=== PATIENT | female | born 1965 | race Caucasian/White ===

== ENCOUNTER 2017-05-20 15:14 | Emergency (ER) | payer OTHER ==
[~2017-05-20] VITALS: Ht 172.7 cm; Wt 97.5 kg
[~2017-05-20 15:14] MED LIST: AMIT1TAB79; ASPI81TA81 PO; BACL10TA PO; BUSP10TA PO; COQ-30CA2; FLUC150T PO; GABA400C5 PO; GEMF600T PO; LAMO100 PO; LURA40 PO; NOVONP2 SQ; NRDRIP; NYST15T TOPICAL; TRIA.1%T TOPICAL; VENL75CA44 PO; VENL75TA PO; VIST25CA PO
[2017-05-20 15:17] VITALS: BP 189/90; PULSE 92; RESP 20; TEMP 96.7; O2SAT 99
--- NOTE | 2017-05-20 15:30 | PD ---
Physical Exam Date Seen by Provider: May 20, 2017 Time Seen by Provider: 15:27 Narrative 52 yo female here for possible allergic reaction. Had increase on med including lithium and seroquel. Feeling clumsy and having slurred speech since change in med. Vitals are stable in triage. Awaiting Bed placement. Data Data Last Documented VS Vital Signs Date Time Temp Pulse Resp B/P (MAP) Pulse Ox O2 Delivery O2 Flow Rate FiO2 05/20/17 15:17 96.7 92 20 189/90 (123) 99 Room Air [facility] Medical Record Reviewed: Yes Supervised Visit with YAHIR: Vega Gandhi May 20, 2017 15:30
[2017-05-20] MEDS ORDERED: TIZA4TAB PO (17:11)
[2017-05-20] MEDS ORDERED: LITH300C2 PO (17:11)
[2017-05-20] MEDS ORDERED: PRAV20TA2 PO (17:11)
[2017-05-20] MEDS ORDERED: SERO200T PO (17:11)
[2017-05-20 17:28] LABS: AUTOMATED NEUTROPHIL # 3.5 TH/MM3 (1.8-7.7); BASOPHIL % 0.6 % (0.0-2.0); EOSINOPHIL % 0.4 % (0.0-4.0); HEMATOCRIT 41.3 % (35.0-46.0); HEMO FLAGS DIFF FINAL; LYMPH % 23.8 % (9.0-44.0); LYMPHOCYTE # 1.2 TH/MM3 (1.0-4.8); MEAN CELL VOLUME 83.2 FL (80.0-100.0); MEAN CORPUSCULAR HEMOGLOBIN 27.3 PG (27.0-34.0); MEAN CORPUSCULAR HGB CONC 32.8 % (32.0-36.0); MONO % 7.6 % (0.0-8.0); NEUT % 67.6 % (16.0-70.0); PLATELET COUNT 225 TH/MM3 (150-450); RED BLOOD COUNT 4.96 MIL/MM3 (4.00-5.30); RED CELL DISTRIBUTION WIDTH 13.7 % (11.6-17.2); WHITE BLOOD COUNT 5.2 TH/MM3 (4.0-11.0)
[2017-05-20 17:56] LABS: ANION GAP 8 MEQ/L (5-15); AST (GOT) 58 U/L (15-37); BICARBONATE 26.8 MEQ/L (21.0-32.0); BLOOD UREA NITROGEN 17 MG/DL (7-18); CHLORIDE 105 MEQ/L (98-107); GLOMERULAR FILTRATION RATE 55 ML/MIN (>89); POTASSIUM 3.7 MEQ/L (3.5-5.1); SODIUM (NA) 140 MEQ/L (136-145)
[2017-05-20 17:57] LABS: ALT (GPT) 81 U/L (10-53)
--- NOTE | 2017-05-20 17:57 | PD ---
HPI Chief Complaint: Allergic/Adverse Reaction Time Seen by Provider: 17:44 Travel History International Travel<30 days: No Contact w/Intl Traveler<30days: No Traveled to known affect area: No History of Present Illness HPI 52yo F with PMH of bipolar disorder presents to the ED with c/o possible reaction to her increased of lithium. States that her lithium dose was increased from 150mg to 300mg starting last night and after she took it, she felt funny. She like her "brain freeze" and she couldnt breath but it was only at night. Denies any fever, visual changes, chest pain, sob, n/v, abdominal pain. Pt has also been taking seroquel for 2 months. PFSH Past Medical History Asthma: No Blood Disorders: No Bipolar Disorder: Yes Anxiety: Yes Depression: Yes Heart Rhythm Problems: No Cancer: No Cardiovascular Problems: Yes High Cholesterol: Yes Chemotherapy: No Chest Pain: Yes Congestive Heart Failure: No COPD: No Diabetes: Yes Patient Takes Glucophage: No Diminished Hearing: No Endocrine: Yes Gastrointestinal Disorders: Yes Genitourinary: No Hypertension: Yes Immune Disorder: No Musculoskeletal: No Neurologic: No Psychiatric: Yes (Bi-Polar and Depression) Reproductive: No Respiratory: No Immunizations Current: No Radiation Therapy: No Sleep Apnea: No Thyroid Disease: No ?: Not LMP: na Menopausal: Yes Past Surgical History Tonsillectomy: Yes Other Surgery: Yes (tonsils and adnoids) Social History Alcohol Use: No Tobacco Use: No Substance Use: No Allergies-Medications (Allergen,Severity, Reaction): Coded Allergies: No Known Allergies (Verified , 05/20/17) Reported Meds & Prescriptions Reported Meds & Active Scripts Active Fluconazole 150 Mg Tab 150 Mg PO WEEKLY Nystatin Topical (Nystatin) 100,000 unit/gm Cream 1 Applic TOPICAL BID Reported Tizanidine (Tizanidine HCl) 4 Mg Tab 4 Mg PO DAILY Pravastatin 20 Mg Tab 20 Mg PO DAILY Seroquel (Quetiapine Fumarate) 200 Mg Tab 400 Mg PO HS [place] Carbonate 300 Mg Cap 300 Mg PO BID Novolin N Inj (Insulin Human NPH) 100 Unit/Ml Inj 55 Unit SQ BID Gemfibrozil 600 Mg Tab 600 Mg PO BIDAC Take 30 minutes prior to breakfast and dinner. Baclofen 10 Mg Tab 10 Mg PO BID Aspir-81 (Aspirin) 81 Mg Tabdr 81 Mg PO DAILY Review of Systems Except as stated in HPI: all other systems reviewed are Neg Physical Exam Narrative GENERAL: 52yo F not in distress. SKIN: Focused skin assessment warm/dry. HEAD: Atraumatic. Normocephalic. EYES: Pupils equal and round at 3mm bilaterally and equal. EOMI. No scleral icterus. No injection or drainage. ENT: No nasal bleeding or discharge. Mucous membranes pink and moist. NECK: Trachea midline. No JVD. CARDIOVASCULAR: Regular rate and rhythm. No murmur appreciated. RESPIRATORY: No accessory muscle use. Clear to auscultation. Breath sounds equal bilaterally. GASTROINTESTINAL: Abdomen soft, non-tender, nondistended. MUSCULOSKELETAL: No obvious deformities. No clubbing. No cyanosis. No edema. NEUROLOGICAL: Awake and alert. No obvious cranial nerve deficits. Motor grossly within normal limits in all extremities. Normal speech. Sensation intact bilaterally. PSYCHIATRIC: Appropriate mood and affect; insight and judgment normal. Data Data Last Documented VS Vital Signs Date Time Temp Pulse Resp B/P (MAP) Pulse Ox O2 Delivery O2 Flow Rate FiO2 05/20/17 19:16 05/20/17 15:17 96.7 92 20 99 Room Air Orders Orders Complete Blood Count With Diff (05/20/17 15:25) Comprehensive Metabolic Panel (05/20/17 15:25) Urinalysis - C+S If Indicated (05/20/17 15:25) [place] (Li) (05/20/17 15:25) Drug Screen, Random Urine (05/20/17 15:25) Alcohol (Ethanol) (05/20/17 15:25) Salicylates (Aspirin) (05/20/17 15:25) Tylenol (Acetaminophen) (05/20/17 15:25) Urine Culture (05/20/17 18:24) Labs Laboratory Tests Test 05/20/17 17:05 05/20/17 18:24 White Blood Count 5.2 TH/MM3 Red Blood Count 4.96 MIL/MM3 Hemoglobin 13.6 GM/DL Hematocrit 41.3 % Mean Corpuscular Volume 83.2 FL Mean Corpuscular Hemoglobin 27.3 PG Mean Corpuscular Hemoglobin Concent 32.8 % Red Cell Distribution Width 13.7 % Platelet Count 225 TH/MM3 Mean Platelet Volume 8.4 FL Neutrophils (%) (Auto) 67.6 % Lymphocytes (%) (Auto) 23.8 % Monocytes (%) (Auto) 7.6 % Eosinophils (%) (Auto) 0.4 % Basophils (%) (Auto) 0.6 % Neutrophils # (Auto) 3.5 TH/MM3 Lymphocytes # (Auto) 1.2 TH/MM3 Monocytes # (Auto) 0.4 TH/MM3 Eosinophils # (Auto) 0.0 TH/MM3 Basophils # (Auto) 0.0 TH/MM3 CBC Comment DIFF FINAL Differential Comment Blood Urea Nitrogen 17 MG/DL Creatinine 1.05 MG/DL Random Glucose 217 MG/DL Total Protein 7.2 GM/DL Albumin 4.0 GM/DL Calcium Level 10.0 MG/DL Alkaline Phosphatase 103 U/L Aspartate Amino Transf (AST/SGOT) 58 U/L Alanine Aminotransferase (ALT/SGPT) 81 U/L Total Bilirubin 0.8 MG/DL Sodium Level 140 MEQ/L Potassium Level 3.7 MEQ/L Chloride Level 105 MEQ/L Carbon Dioxide Level 26.8 MEQ/L Anion Gap 8 MEQ/L Estimat Glomerular Filtration Rate 55 ML/MIN Salicylates Level LESS THAN 1.7 MG/DL Acetaminophen Level LESS THAN 2.0 MCG/ML [place] Level 0.6 MEQ/L Ethyl Alcohol Level LESS THAN 3 MG/DL Urine Color YELLOW Urine Turbidity HAZY Urine pH 5.5 Urine Specific [place] 1.019 Urine Protein NEG mg/dL Urine Glucose (UA) NEG mg/dL Urine Ketones NEG mg/dL Urine Occult Blood NEG Urine Nitrite NEG Urine Bilirubin NEG Urine Urobilinogen LESS THAN 2.0 MG/DL Urine Leukocyte Esterase SMALL Urine RBC 6 /hpf Urine WBC 6 /hpf Urine Squamous Epithelial Cells 9 /hpf Urine Amorphous Sediment RARE Urine Bacteria MANY /hpf Urine Mucus FEW /lpf Microscopic Urinalysis Comment CULTURE INDICATED Urine Opiates Screen NEG Urine Barbiturates Screen NEG Urine Amphetamines Screen NEG Urine Benzodiazepines Screen NEG Urine Cocaine Screen NEG Urine Cannabinoids Screen NEG MDM Medical Decision Making Medical Screen Exam Complete: Yes Emergency Medical Condition: Yes Differential Diagnosis [place] toxicity vs. medication side effect vs. medication reaction Narrative Course 52yo F with questionable reaction to increased dose of lithium. Pt has no complaints now and no symptoms now. No abnormality on exam. Labs reviewed, no leukocytosis. Glucose is elevated at 217. Creatinine is at baseline. LFTs elevated but at baseline and pt knows about it. [place] level normal at 0.6. Acetaminophen, salicylate normal. Alcohol negative. UA was sent but pt does not want to wait for results. Pt is in a hurry. She understands I don't have UA results. Return precautions given. Pt advised to follow up with psychiatrist. Diagnosis Primary Impression: Medication reaction Qualified Codes: T88.7XXA - Unspecified adverse effect of drug or medicament, initial encounter Patient Instructions: General Instructions Departure Forms: Tests/Procedures Additional Instructions: Please follow up with your psychiatrist in 1-2 days. Return to the ED if symptoms worsen. Med/Other Pt SpecificInfo: No Change to Meds Disposition: 01 DISCHARGE HOME Condition: Stable Valentina Pinto DO May 20, 2017 17:57
[2017-05-20 18:00] LABS: ALKALINE PHOSPHATASE 103 U/L (45-117); TOTAL BILIRUBIN ADULT 0.8 MG/DL (0.2-1.0)
[2017-05-20 18:11] LABS: ALCOHOL LESS THAN 3 MG/DL (0-5)
[2017-05-20 18:13] LABS: ACETAMINOPHEN LESS THAN 2.0 MCG/ML (10.0-30.0)
[2017-05-20 18:59] LABS: BACTERIA, URINE MANY /hpf; BLOOD, URINE NEG (NEG); COMMENT (UR) CULTURE INDICATED; CULTURE IF INDICATED CULTURE INDICATED; GLUCOSE,URINE NEG (NEG); KETONE, URINE NEG (NEG); MUCUS URINE FEW /lpf (OCC); NITRITE,URINE NEG (NEG); PH, URINE 5.5 (5.0-8.5); SQUAMOUS EPITHELIAL CELL URINE 9 /hpf (0-5); URINE COLOR YELLOW (YELLW/STRAW)
[2017-07-16] MEDS ORDERED: FLUC150T PO (14:20)
[2017-07-20] MEDS ORDERED: FLUC150T PO (14:56)
== END 2017-05-20 19:21 | disposition home or self-care (01) ==
LOC: NEPD 15:14
DX: T88.7XXA Unspecified adverse effect of drug or medicament, initial encounter (principal); E11.9 Type 2 diabetes mellitus without complications; I10 Essential (primary) hypertension; E78.00 Pure hypercholesterolemia, unspecified; Z79.4 Long term (current) use of insulin; Z79.899 Other long term (current) drug therapy; Z86.59 Personal history of other mental and behavioral disorders; Z86.79 Personal history of other diseases of the circulatory system; Z87.19 Personal history of other diseases of the digestive system
CPT/HCPCS: 80053; 80178; 80307; 81001; 85025; 87086; 99283